=== PATIENT | female | born 1980 | race Caucasian/White ===

== ENCOUNTER 2022-01-15 22:08 | Emergency (ER) | payer OTHER ==
[~2022-01-15] VITALS: Ht 177.8 cm; Wt 90.1 kg
[2022-01-16 00:11] LABS: URINE HCG NEGATIVE (NEG)
[2022-01-16 00:17] LABS: CLARITY,URINE CLEAR (Clear); COLOR,URINE YELLOW (Yellow); GLUCOSE, URINE NEGATIVE (Neg); KETONES,URINE TRACE mg/dl (Neg); LEUKOCYTE ESTERASE ,URINE NEGATIVE (Neg); NITRITES, URINE NEGATIVE (Neg); OCCULT BLOOD,URINE NEGATIVE (Neg); PH,URINE 5.5 (4.8-8.0); PROTEIN,URINE NEGATIVE (Neg); UROBILINOGEN,URINE 0.2 E.U/dL (0.2-1.0)
[2022-01-16 00:19] LABS: UA COLLECTION TYPE CLN CATCH MIDSTREAM
[2022-01-16 00:23] LABS: URINE AMPHETAMINE SCREEN NEGATIVE (Neg); URINE BARBITUATE SCREEN NEGATIVE (Neg); URINE BENZODIAZEPINES SCREEN POSITIVE (Neg); URINE CANNABINOID SCREEN NEGATIVE (Neg); URINE COCAINE SCREEN NEGATIVE (Neg); URINE METHADONE SCREEN NEGATIVE (Neg); URINE OPIATE SCREEN NEGATIVE (Neg); URINE PHENCYCLIDINE SCREEN NEGATIVE (Neg)
[2022-01-16 00:50] LABS: BASOPHILS # (AUTO) 0.1 X10'3 (0-0.2); BASOPHILS % (AUTO) 0.5 % (0-1); EOSINOPHILS # (AUTO) 0.1 X10'3 (0-0.9); EOSINOPHILS % (AUTO) 0.6 % (0-6); HEMATOCRIT 42.5 % (35.0-45.0); HEMOGLOBIN 14.6 g/dl (12.0-16.0); LYMPHOCYTES # (AUTO) 1.8 X10'3 (1.1-4.8); LYMPHOCYTES % (AUTO) 18.6 % (21-51); MEAN CORPUSCULAR HEMOGLOBIN 30.8 PG (27.0-31.0); MEAN CORPUSCULAR HGB CONC 34.4 g/dL (33.0-36.5); MEAN CORPUSCULAR VOLUME 89.4 FL (78-98); MEAN PLATELET VOLUME 9.4 FL (7.4-10.4); MONOCYTES # (AUTO) 0.9 X10'3 (0-0.9); MONOCYTES % (AUTO) 9.2 % (2-12); NEUTROPHILS # (AUTO) 7.1 X10'3 (1.8-7.7); NEUTROPHILS % (AUTO) 71.1 % (42-75); PLATELET COUNT 279 X10'3 (140-440); RED BLOOD COUNT 4.75 X10'6 (4.20-5.60); RED CELL DISTRIBUTION WIDTH 14.3 % (11.5-14.5); WHITE BLOOD COUNT 9.9 X10'3 (4.5-11.0)
[2022-01-16 00:54] LABS: ALANINE AMINOTRANSFERASE 18 U/L (12-78); ALBUMIN 4.2 G/DL (3.4-5.0); ALKALINE PHOSPHATASE 81 IU/L (46-116); ANION GAP 10 (8-16); ASPARTATE AMINO TRANSFERASE 17 U/L (10-37); BILIRUBIN,TOTAL 0.3 MG/DL (0.1-1.0); BLOOD UREA NITROGEN 15 MG/DL (7-18); BUN/CREATININE RATIO 20.3 (6.6-38.0); CALCIUM 8.9 MG/DL (8.5-10.1); CHLORIDE 105 MMOL/L (99-107); CREATININE 0.74 MG/DL (0.40-0.90); GLUCOSE 98 MG/DL (70-104); POTASSIUM 3.9 MMOL/L (3.5-5.1); SODIUM 143 MMOL/L (135-145); TOTAL PROTEIN 8.3 G/DL (6.4-8.2); eGFR 87 ML/MIN
[2022-01-16 01:03] LABS: ETHANOL < 0.010 GM/DL (0.0-0.010)
[2022-01-16] MEDS ORDERED: traZODone 50mg tablet PO ONE (01:30)
[2022-01-16] MEDS ORDERED: NO HOME MEDS (02:48)
[2022-01-16] MEDS: diphenhydrAMINE 25mg capsule PO ONE ×2 (04:30→04:53)
[2022-01-16] MEDS: olanzapine 10mg tablet PO SCH (04:42)
--- NOTE | 2022-01-16 06:16 | NUR ---
S/I. No plan. Wants to . Feeling stressed and has felt this way before. I previous hospitalization. Given 50 my Trazodone and only slept a little. Refused Zyprexa and Benadryl. No home meds. Packet was sent. Rec'd report. Patient going to bed 26.
--- NOTE | 2022-01-16 07:04 | NUR ---
Patient given water and laying in bed awake on her left side. No distress observed. Continue to monitor.
--- NOTE | 2022-01-16 08:10 | NUR ---
Patient eating breakfast. No distress observed. Continue to monitor.
--- NOTE | 2022-01-16 09:10 | NUR ---
Patient using the phone to call family. No distress observed. Continue to monitor.
--- NOTE | 2022-01-16 10:55 | NUR ---
Patient given coloring pages to keep her occupied. No distress observed. Continue to monitor.
[2022-01-16] MEDS ORDERED: hydrOXYzine 25 MG tablet PO ONE (11:00)
--- NOTE | 2022-01-16 11:29 | NUR ---
Patient c/o being anxious. Patient states she has some PTSD but did not want to expand on that subject. Patient denies suicidal ideation but states she has high anxiety. Patient does not have a regular doctor and does not have a therapist. RN spoke to patient about EMDR and getting a therapist. Patient asked to be placed on Seroquel as patient states she was on this med some time ago and it helped her with her anxiety. RN explained that these are ER doctors and couldn't follow up with her so they would not prescribe her that medication. RN explained to patient that she needs a GP or a psychiatrist to prescribe medication and follow her progress. Patient verbalized understanding. RN gave patient 25 mg of Atarax P.O. Continue to monitor.
--- NOTE | 2022-01-16 12:10 | NUR ---
Patient eating lunch. No distress observed. Continue to monitor.
--- NOTE | 2022-01-16 14:30 | NUR ---
Patient's mom called upset that she has not received Seroquel like the Dr. last night told the patient she would get. Mother states she is coming to the E. [facility]. with her patent prosecution attorney to get the patient out so patient can get real help. Mother states patient is sitting in her room wanting to kill herself and we haven't helped her one bit. RN advised mom that patient denied suicidal ideation to RN and stated she just had anxiety. Medication was given for anxiety. Mother states the patient is lying about being suicidal. RN explained that RN cannot read the patient's mind about being suicidal. RN explained that patient is on a legal hold and cannot be released until she is evaluated by [facility]. Mother states RN will see her and her unit secy soon.
--- NOTE | 2022-01-16 15:50 | NUR ---
Karrie [facility], evaluating patient. Continue to monitor.
--- NOTE | 2022-01-16 15:55 | NUR ---
Patient to the nurses station. Patient has long pause with each question. Patient appears to have thought blocking. Continue to monitor.
[2022-01-16] MEDS ORDERED: QUEtiapine 25mg tablet PO ONE (16:35)
--- NOTE | 2022-01-16 17:54 | NUR ---
UPON WALTER DOING VITALS ROUNDS, WALTER NOTICED PT VITALS TO BE HIGHER THAN NORMAL RANGE TECH TALKED TO PT AND ASKED HOW SHE WAS FEELING. MPT STATED THEY WERE ANXIOUS FROM TAKING THE SEROQUEL GIVEN TO THEM BY THE RN. WALTER TOLD PT TP EAT SERG DINNER AND IF SHE CONTINUED TO FEEL THE SAME TO NOTIFY RN. WALTER ALSO NOTIFIED RN DURING SHIFT CHANGE.
[2022-01-16] MEDS ORDERED: LORazepam 1 MG tablet PO ONE (19:30)
--- NOTE | 2022-01-16 19:42 | NUR ---
PT STATES SHE IS FEELING VERY ANXIOUS, HR 130. PT STATES SHE FEELS THIS WAY AT HOME SOMETIMES. PA CONSULTED, 1 MG ATIVAN PO GIVEN
--- NOTE | 2022-01-16 19:50 | NUR ---
PT ADMITS TO STILL FEELING SUICIDAL, ALTHOUGH SHE IS UNABLE TO GO INTO ANY DETAIL. SHE IS HAVING TROUBLE TALKING DUE TO ANXIETY
[2022-01-16] MEDS: QUEtiapine 25mg tablet PO SCH (20:00)
--- NOTE | 2022-01-16 21:12 | NUR ---
PT REFUSES HS SEROQUEL STATING SEROQUEL MAKES HER SHAKY AND FEEL ANXIOUS
--- NOTE | 2022-01-17 00:08 | NUR ---
PT ACCEPTED AT [facility] AT 0000 ON 01/17/22. ACCEPTING DOCTOR IS DR. LOLI DE LUNA
[2022-01-17] MEDS ORDERED: LORazepam 2 mg/ml vial IM ONE (00:20)
[2022-01-17] MEDS ORDERED: diphenhydrAMINE 50 mg/ml inj IM ONE (00:20)
--- NOTE | 2022-01-17 00:20 | NUR ---
PT STATES SHE FEELS LIKE HER HEART IS RACING, PT IS VERY ANXIOUS AND ALMOST UNABLE TO SPEAK. EKG ORDERED AND COMPLETED, WNL
--- NOTE | 2022-01-17 00:42 | NUR ---
PT STATES, "I FEEL LIKE I AM GOING TO HURT SOMEONE. I FEEL LIKE I NEED TO HURT SOMEONE." PT LOOKS SCARED AND PALE. SHE IS HAVING TROUBLE RESPONDING IN A NORMAL AMOUNT OF TIME, AND APPEARS EXTREMELY ANXIOUS. DR. SMITH CONSULTED, 2MG ATIVAN AND 50 MG BENADRYL IM ORDRED. MEDICATIONS EXPLAINED TO PT, PT AGREES TO TAKE THEM. INJECTIONS GIVEN WITHOUT ISSUE.
--- NOTE | 2022-01-17 01:30 | NUR ---
pt resting quietly in bed, pt states the medications are working
--- NOTE | 2022-01-17 03:00 | NUR ---
pt asleep respirations even and unlabored
--- NOTE | 2022-01-17 04:30 | NUR ---
pt asleep RR 16
--- NOTE | 2022-01-17 07:03 | NUR ---
Pt appears to be sleeping, no restless movements noted. Respirations even and unlabored.
[2022-01-17] MEDS: QUEtiapine 25mg tablet PO SCH (08:00)
[2022-01-17] MEDS: olanzapine 10mg tablet PO SCH (08:00)
--- NOTE | 2022-01-17 08:30 | NUR ---
Patient refused her morning Seroquel and Zyprexa. Pt states "I don't like how Seroquel makes me feel." Pt wasn't aware of what Zyprexa was, pt educated and pt refused.
--- NOTE | 2022-01-17 09:01 | NUR ---
Pt awake sitting on side of bed writing her thoughts down. Pt requested headphones to help distract her, however headphones are not available in [facility]. Pt was given a book to read "I just need something to keep me out of my head." Pt continues with sucidal, anxious thoughts, but reports feeling better sine her IM last night. Pt was appreciative about receving the medication. Pt ate 100% of her breakfast and is waiting placement.
--- NOTE | 2022-01-17 10:47 | NUR ---
Gale ryder in [facility] - 01/17/22 at 1048 by CORDELIA Obtained urine sample and sent to lab.
--- NOTE | 2022-01-17 11:20 | NUR ---
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 Pt became anxious r/t "I just don't know what to expect." Tub Attendant sat with patient and explained the benefits of an inpatient hospital stay. Pt states 'I have taken care of everyone else and I think I may have blown everything out of proportion." Pt requested to call her mother to update her on status. Pt's mother became upset and requested to speak to editorial writer. She immediately said, with a raised voice, "Where are you taking my daughter and why wasn't I told about it!" Tub Attendant explained where pt was going and she would be able to come visit her daughter before she was transferred.
[2022-01-17 13:39] VITALS: BP 123/85
--- NOTE | 2022-01-17 13:47 | NUR ---
DISCHARGE NOTE: Pt left unit at 1335. Pt left with [place] airport driver being transported to [facility]. Pt left with all personal belongings. Pt presented anxious going back to her room two different times looking through the items left behind. Pt was A&Ox4. Pt's mom and dad were at bedside.
== END 2022-01-17 13:35 ==
LOC: ER 22:09
DX: R45.851 Suicidal ideations (principal); Z20.822 Contact with and (suspected) exposure to COVID-19; R53.83 Other fatigue
CPT/HCPCS: 36415; 80053; 80305; 80320; 81003; 81025; 84443; 85025; 87635; 96372; 99285; C9803; J1200; J2060; Q0177